=== PATIENT | male | born 1940 | race Caucasian/White ===

== ENCOUNTER 2021-09-03 10:10 | Inpatient (IN) ==
[2021-09-03 11:03] LABS: Basophils % 0.5 % (0.0-0.8); Eosinophils # 0.1 10*3/uL (0.0-0.87); Eosinophils % 1.3 % (0.00-10.9); Hematocrit 28.9 VOL% (42.0-52.0); Hemoglobin 8.9 GM/DL (14.0-18.0); Immature Granulocytes % 0.3 %; Immature Granulocytes Absolute 0.02 #; Lymphocytes # 1.1 10*3/uL (1.4-4.0); Mean Corpuscular HGB Conc 30.8 GM/DL (32-36); Mean Corpuscular Volume 87.3 FL (87-102); Mean Platelet Volume 11.6 FL (9.6-12.0); Monocytes # 0.4 10*3/uL (0.11-0.8); Monocytes % 5.9 % (1.7-12.7); Platelet Count 160 T/CUMM (130-400); Red Blood Count 3.31 MC/CUMM (3.8-5.5); Red Cell Distribution Width 14.3 % (9.3-17.3)
[2021-09-03 11:23] LABS: Alanine Aminotransferase 27 U/L (16-61); Alkaline Phosphatase 71 U/L (45-117); Aspartate Amino Transferase 18 U/L (0-37); Bilirubin,Total < 0.39 MG/DL (0.20-1.00); Blood Urea Nitrogen 33 MG/DL (7-18); Calcium 8.2 MG/DL (8.5-10.1); Carbon Dioxide 24 MMOL/L (21-32); Chloride 106 MMOL/L (98-107); Glucose 137 MG/DL (74-106); Osmolality,Calculated 276.2 MOS/KG (273-304); Sodium 134 MMOL/L (136-145); Total Protein 6.5 G/DL (6.4-8.2)
[2021-09-03 11:26] LABS: Potassium 6.5 MMOL/L (3.5-5.1)
[2021-09-03] MEDS ORDERED: INSULIN REGULAR 100 UNIT/ML IV ONE (11:29)
[2021-09-03] MEDS ORDERED: DEXTROSE 50% 25 GM/50 ML VIAL IV STA (11:29)
[2021-09-03] MEDS ORDERED: CALCIUM GLUCONATE RIDER 2,000 MG/100 ML PREMIX IV ONE (11:29)
[2021-09-03] MEDS ORDERED: SODIUM POLYSTYRENE SULFATE 15 GM/60 ML BOTTLE PO STA (11:30)
[2021-09-03] MEDS ORDERED: FUROSEMIDE 40 MG/4 ML VIAL IV STA (11:32)
[2021-09-03] MEDS ORDERED: DEXTROSE 50% 25 GM/50 ML SYRINGE IV ONE (12:06)
[2021-09-03] MEDS ORDERED: PIPERACILLIN/TAZOBACTAM 3,375 MG in SODIUM CHLORIDE 0.9% 100 ML IV STA ×2 (13:51→13:54)
[2021-09-03] MEDS: SODIUM CHLORIDE 0.9% 1,000 ML IV SCH (15:00)
[2021-09-03] MEDS ORDERED: AZITHROMYCIN INJ 500 MG in SODIUM CHLORIDE 0.9% 250 ML IV SCH (15:00)
[2021-09-03] MEDS ORDERED: cefTRIAXone 1,000 MG in SODIUM CHLORIDE 0.9% 100 ML IV SCH (15:00)
[2021-09-03] MEDS ORDERED: ALBUTEROL/IPRATROPIUM 3 ML NEB RESP TX PRN (15:32)
[2021-09-03] MEDS ORDERED: SODIUM POLYSTYRENE SULFATE 15 GM/60 ML BOTTLE PO ONE (16:00)
[2021-09-03] MEDS: PIPERACILLIN/TAZOBACTAM 3,375 MG in SODIUM CHLORIDE 0.9% 100 ML IV SCH (16:30)
[2021-09-03] MEDS: ACETAMINOPHEN 500 MG TABLET PO PRN (19:29)
[2021-09-03] MEDS: ROSUVASTATIN 20 MG TABLET PO SCH (20:55)
[2021-09-03] MEDS: ASPIRIN EC 81 MG TABLET PO SCH (20:55)
[2021-09-03] MEDS: APIXABAN 5 MG TABLET PO SCH (20:55)
[2021-09-03] MEDS: METOPROLOL TARTRATE 100 MG TABLET PO SCH (20:56)
[2021-09-03] MEDS: tiZANidine 4 MG TABLET PO SCH (20:56)
[2021-09-03] MEDS: GABAPENTIN 300 MG CAPSULE PO SCH (20:56)
[2021-09-04] MEDS: PIPERACILLIN/TAZOBACTAM 3,375 MG in SODIUM CHLORIDE 0.9% 100 ML IV SCH ×4 (00:27→23:30)
[2021-09-04 05:14] LABS: Eosinophils # 0.1 10*3/uL (0.0-0.87); Eosinophils % 2.5 % (0.00-10.9); Hematocrit 31.1 VOL% (42.0-52.0); Hemoglobin 9.5 GM/DL (14.0-18.0); Immature Granulocytes % 0.5 %; Immature Granulocytes Absolute 0.02 #; Lymphocytes # 0.8 10*3/uL (1.4-4.0); Lymphocytes % 21.3 % (21.2-54.2); Mean Corpuscular HGB Conc 30.5 GM/DL (32-36); Mean Corpuscular Volume 85.9 FL (87-102); Mean Platelet Volume 10.8 FL (9.6-12.0); Monocytes # 0.3 10*3/uL (0.11-0.8); Monocytes % 6.6 % (1.7-12.7); Neutrophils % 68.1 % (38.7-73.9); Platelet Count 143 T/CUMM (130-400); Red Blood Count 3.62 MC/CUMM (3.8-5.5); Red Cell Distribution Width 14.2 % (9.3-17.3)
[2021-09-04 05:38] LABS: Calcium 8.9 MG/DL (8.5-10.1); Osmolality,Calculated 278.8 MOS/KG (273-304); Potassium 4.9 MMOL/L (3.5-5.1)
[2021-09-04] MEDS: LEVOTHYROXINE 75 MCG TABLET PO SCH (06:20)
[2021-09-04] MEDS: SODIUM CHLORIDE 0.9% 1,000 ML IV SCH ×3 (07:26→23:29)
[2021-09-04] MEDS: APIXABAN 5 MG TABLET PO SCH (09:09)
[2021-09-04] MEDS: METOPROLOL TARTRATE 100 MG TABLET PO SCH ×2 (09:09→20:36)
[2021-09-04] MEDS: amLODIPine 10 MG TABLET PO SCH (09:09)
[2021-09-04] MEDS: LOSARTAN 50 MG TABLET PO SCH (09:10)
[2021-09-04] MEDS: tiZANidine 4 MG TABLET PO SCH ×2 (09:12→20:36)
[2021-09-04] MEDS: GABAPENTIN 300 MG CAPSULE PO SCH ×2 (09:22→20:36)
[2021-09-04 09:26] LABS: Folate 10.44 NG/ML (5.38-24.0)
[2021-09-04] MEDS: ROSUVASTATIN 20 MG TABLET PO SCH (20:36)
[2021-09-04] MEDS: ASPIRIN EC 81 MG TABLET PO SCH (20:36)
[2021-09-05 06:18] LABS: Basophils % 0.7 % (0.0-0.8); Eosinophils # 0.1 10*3/uL (0.0-0.87); Eosinophils % 2.5 % (0.00-10.9); Hematocrit 33.4 VOL% (42.0-52.0); Hemoglobin 10.3 GM/DL (14.0-18.0); Immature Granulocytes % 0.4 %; Immature Granulocytes Absolute 0.02 #; Lymphocytes % 21.7 % (21.2-54.2); Mean Corpuscular HGB Conc 30.8 GM/DL (32-36); Mean Platelet Volume 10.9 FL (9.6-12.0); Monocytes # 0.3 10*3/uL (0.11-0.8); Monocytes % 6.7 % (1.7-12.7); Platelet Count 160 T/CUMM (130-400); Red Blood Count 3.93 MC/CUMM (3.8-5.5); Red Cell Distribution Width 14.2 % (9.3-17.3); White Blood Count 4.5 T/CUMM (4-12)
[2021-09-05] MEDS: LEVOTHYROXINE 75 MCG TABLET PO SCH (06:24)
[2021-09-05 06:30] LABS: Calcium 8.4 MG/DL (8.5-10.1); Osmolality,Calculated 279.5 MOS/KG (273-304); Potassium 4.3 MMOL/L (3.5-5.1)
[2021-09-05] MEDS ORDERED: CHOLECALCIFEROL 1,000 UNIT TABLET PO SCH (09:00)
[2021-09-05] MEDS: amLODIPine 10 MG TABLET PO SCH (09:02)
[2021-09-05] MEDS: LOSARTAN 50 MG TABLET PO SCH (09:02)
[2021-09-05] MEDS: FERROUS SULFATE 325 MG TABLET PO SCH (09:02)
[2021-09-05] MEDS: tiZANidine 4 MG TABLET PO SCH ×2 (09:03→20:12)
[2021-09-05] MEDS: GABAPENTIN 300 MG CAPSULE PO SCH ×2 (09:03→20:12)
[2021-09-05] MEDS: ACETAMINOPHEN 500 MG TABLET PO PRN ×2 (09:03→20:13)
[2021-09-05] MEDS: METOPROLOL TARTRATE 100 MG TABLET PO SCH ×2 (09:03→20:12)
[2021-09-05] MEDS: PIPERACILLIN/TAZOBACTAM 3,375 MG in SODIUM CHLORIDE 0.9% 100 ML IV SCH ×2 (09:04→17:19)
[2021-09-05] MEDS: SODIUM CHLORIDE 0.9% 1,000 ML IV SCH (18:35)
[2021-09-05] MEDS: DOCUSATE SODIUM 100 MG CAPSULE PO SCH (20:12)
[2021-09-05] MEDS: ROSUVASTATIN 20 MG TABLET PO SCH (20:12)
[2021-09-05] MEDS: ASPIRIN EC 81 MG TABLET PO SCH (20:14)
[2021-09-06] MEDS: SODIUM CHLORIDE 0.9% 1,000 ML IV SCH (00:45)
[2021-09-06] MEDS: PIPERACILLIN/TAZOBACTAM 3,375 MG in SODIUM CHLORIDE 0.9% 100 ML IV SCH ×2 (01:02→08:42)
[2021-09-06 05:12] LABS: Basophils % 0.2 % (0.0-0.8); Eosinophils # 0.1 10*3/uL (0.0-0.87); Eosinophils % 1.4 % (0.00-10.9); Hematocrit 30.1 VOL% (42.0-52.0); Hemoglobin 9.4 GM/DL (14.0-18.0); Immature Granulocytes % 0.2 %; Immature Granulocytes Absolute 0.01 #; Lymphocytes # 0.9 10*3/uL (1.4-4.0); Lymphocytes % 18.3 % (21.2-54.2); Mean Corpuscular HGB Conc 31.2 GM/DL (32-36); Mean Corpuscular Volume 85.3 FL (87-102); Mean Platelet Volume 10.9 FL (9.6-12.0); Monocytes # 0.3 10*3/uL (0.11-0.8); Neutrophils % 73.9 % (38.7-73.9); Platelet Count 151 T/CUMM (130-400); Red Blood Count 3.53 MC/CUMM (3.8-5.5); Red Cell Distribution Width 14.3 % (9.3-17.3)
[2021-09-06 05:38] LABS: Calcium 8.4 MG/DL (8.5-10.1); Osmolality,Calculated 279.5 MOS/KG (273-304); Potassium 4.2 MMOL/L (3.5-5.1)
[2021-09-06] MEDS: LEVOTHYROXINE 75 MCG TABLET PO SCH (06:34)
[2021-09-06 07:25] VITALS: BP 179/70
[2021-09-06] MEDS: DOCUSATE SODIUM 100 MG CAPSULE PO SCH (08:42)
[2021-09-06] MEDS: FERROUS SULFATE 325 MG TABLET PO SCH (08:42)
[2021-09-06] MEDS: GABAPENTIN 300 MG CAPSULE PO SCH (08:42)
[2021-09-06] MEDS: tiZANidine 4 MG TABLET PO SCH (08:42)
[2021-09-06] MEDS: amLODIPine 10 MG TABLET PO SCH (08:43)
[2021-09-06] MEDS: METOPROLOL TARTRATE 100 MG TABLET PO SCH (08:43)
[2021-09-06] MEDS: LOSARTAN 50 MG TABLET PO SCH (08:43)
[2021-09-06] MEDS ORDERED: hydroCHLOROthiazide 25 MG TABLET PO SCH (09:00)
[2021-09-06] MEDS ORDERED: CHOLECALCIFEROL 1,000 UNIT TABLET PO SCH (09:00)
== END 2021-09-06 11:25 | disposition home health service (06) | DRG 194 ==
LOC: SUATTDRO → EDBD → EDUNIT# → N.ED 10:10 → N.3E 18:36
PROVIDERS: ADMIT Internal Medicine; ATTEND Internal Medicine

== ENCOUNTER 2022-03-09 12:54 | Inpatient (IN) ==
[2022-03-09 13:19] LABS: Basophils % 0.5 % (0.0-0.8); Eosinophils # 0.2 10*3/uL (0.0-0.87); Eosinophils % 2.8 % (0.00-10.9); Hematocrit 35.9 VOL% (42.0-52.0); Hemoglobin 11.5 GM/DL (14.0-18.0); Immature Granulocytes % 0.9 %; Immature Granulocytes Absolute 0.05 #; Lymphocytes # 1.1 10*3/uL (1.4-4.0); Lymphocytes % 19.2 % (21.2-54.2); Mean Corpuscular Volume 90.4 FL (87-102); Mean Platelet Volume 10.4 FL (9.6-12.0); Monocytes # 0.6 10*3/uL (0.11-0.8); Monocytes % 9.7 % (1.7-12.7); Neutrophils % 66.9 % (38.7-73.9); Platelet Count 165 T/CUMM (130-400); Red Blood Count 3.97 MC/CUMM (3.8-5.5); Red Cell Distribution Width 14.6 % (9.3-17.3); White Blood Count 5.7 T/CUMM (4-12)
[2022-03-09 13:29] LABS: INR 0.9; PT Patient Result 10.5 SECS (10.1-12.1)
[2022-03-09 13:39] LABS: Albumin 3.4 G/DL (3.4-5.0); Bilirubin,Total 0.4 MG/DL (0.20-1.00); Calcium 8.7 MG/DL (8.5-10.1); Osmolality,Calculated 282.7 MOS/KG (273-304); Potassium 4.2 MMOL/L (3.5-5.1); Total Protein 6.5 G/DL (6.4-8.2)
[2022-03-09] MEDS ORDERED: ONDANSETRON 4 MG/2 ML VIAL IV PRN (15:03)
[2022-03-09] MEDS ORDERED: GLUCAGON 1 MG VIAL IM PRN (15:03)
[2022-03-09] MEDS ORDERED: ACETAMINOPHEN 325 MG TABLET PO PRN (15:03)
[2022-03-09] MEDS ORDERED: DEXTROSE 10% 250 ML BAG IV PRN (15:08)
[2022-03-09] MEDS ORDERED: LACTULOSE 20 GM/30 ML UDCUP PO PRN (15:14)
[2022-03-09] MEDS ORDERED: SODIUM CHLORIDE 0.9% 1,000 ML IV SCH (15:30)
[2022-03-09] MEDS ORDERED: POLYETHYLENE GLYCOL POWDER 17 GM PACK PO PRN (15:37)
[2022-03-09 15:40] LABS: Folate 22.05 NG/ML (5.38-24.0)
[2022-03-09 15:50] LABS: Mucus,Urine Occasional /LPF (Occasional); RBC,Urine 1 /HPF (0-4)
[2022-03-09 15:51] LABS: Bilirubin,Urine Negative (Negative); Blood, Urine Negative (Negative); Glucose,Urine (UA) Negative (Negative); Ketones,Urine Negative (Negative); Nitrite,Urine Negative (Negative); Protein,Urine Negative (Negative); Urine Appearance Clear (Clear); Urine Color Yellow (Yellow); Urine Urobilinogen 0.2 eU/dL (<2.0); Urine pH 6.5 (4.5-8.0)
[2022-03-09] MEDS: INSULIN LISPRO 100 UNIT/ML SUBCUT SCH ×2 (17:47→21:29)
[2022-03-09] MEDS: ASPIRIN EC 81 MG TABLET PO SCH (21:27)
[2022-03-09] MEDS: APIXABAN 2.5 MG TABLET PO SCH (21:28)
[2022-03-09] MEDS: GABAPENTIN 300 MG CAPSULE PO SCH (21:28)
[2022-03-09] MEDS: NEBIVOLOL 10 MG TABLET PO SCH (21:28)
[2022-03-09] MEDS: DOCUSATE SODIUM 100 MG CAPSULE PO SCH (21:28)
[2022-03-09] MEDS: CALCIUM CARBONATE CHEW 500 MG TABLET PO SCH (21:29)
[2022-03-10 05:50] LABS: Basophils # 0.1 10*3/uL (0.0-0.2); Basophils % 0.8 % (0.0-0.8); Eosinophils # 0.2 10*3/uL (0.0-0.87); Eosinophils % 2.9 % (0.00-10.9); Hematocrit 35.7 VOL% (42.0-52.0); Hemoglobin 11.6 GM/DL (14.0-18.0); Immature Granulocytes % 0.2 %; Immature Granulocytes Absolute 0.01 #; Lymphocytes # 1.3 10*3/uL (1.4-4.0); Lymphocytes % 21.4 % (21.2-54.2); Mean Corpuscular HGB Conc 32.5 GM/DL (32-36); Mean Corpuscular Volume 90.4 FL (87-102); Mean Platelet Volume 10.5 FL (9.6-12.0); Monocytes # 0.4 10*3/uL (0.11-0.8); Monocytes % 6.7 % (1.7-12.7); Platelet Count 181 T/CUMM (130-400); Red Blood Count 3.95 MC/CUMM (3.8-5.5); Red Cell Distribution Width 14.6 % (9.3-17.3); White Blood Count 6.1 T/CUMM (4-12)
[2022-03-10 06:05] LABS: Albumin 3.3 G/DL (3.4-5.0); Bilirubin,Total 0.4 MG/DL (0.20-1.00); Calcium 8.8 MG/DL (8.5-10.1); Osmolality,Calculated 285.4 MOS/KG (273-304); Potassium 4.3 MMOL/L (3.5-5.1); Risk Ratio 3.91; Thyroid Stimulating Hormone 2.68 uIU/ml (0.358-3.74); Total Protein 6.2 G/DL (6.4-8.2)
[2022-03-10] MEDS: LEVOTHYROXINE 75 MCG TABLET PO SCH (07:09)
[2022-03-10] MEDS ORDERED: ALUM/MAG/SIMETH/LIDO VISC 1:1 30 ML BOTTLE PO ONE (07:21)
[2022-03-10] MEDS: PANTOPRAZOLE 40 MG TABLET PO SCH ×2 (07:57→09:38)
[2022-03-10] MEDS: DOCUSATE SODIUM 100 MG CAPSULE PO SCH ×3 (07:57→21:22)
[2022-03-10] MEDS: GABAPENTIN 300 MG CAPSULE PO SCH ×4 (07:58→21:22)
[2022-03-10] MEDS: CHOLECALCIFEROL 1,000 UNIT TABLET PO SCH (07:58)
[2022-03-10] MEDS: amLODIPine 5 MG TABLET PO SCH ×2 (07:58→09:38)
[2022-03-10] MEDS: FERROUS SULFATE 325 MG TABLET PO SCH ×2 (07:58→09:38)
[2022-03-10] MEDS: CALCIUM CARBONATE CHEW 500 MG TABLET PO SCH ×3 (07:58→21:24)
[2022-03-10] MEDS: LOSARTAN 50 MG TABLET PO SCH ×2 (07:58→09:37)
[2022-03-10] MEDS: APIXABAN 2.5 MG TABLET PO SCH ×2 (07:59→21:23)
[2022-03-10] MEDS: INSULIN LISPRO 100 UNIT/ML SUBCUT SCH ×4 (09:05→21:23)
[2022-03-10] MEDS: ASPIRIN EC 81 MG TABLET PO SCH (21:22)
[2022-03-10] MEDS: NEBIVOLOL 10 MG TABLET PO SCH (21:23)
[2022-03-11] MEDS: LEVOTHYROXINE 75 MCG TABLET PO SCH (05:35)
[2022-03-11] MEDS: INSULIN LISPRO 100 UNIT/ML SUBCUT SCH ×4 (07:43→21:07)
[2022-03-11] MEDS: APIXABAN 2.5 MG TABLET PO SCH (09:09)
[2022-03-11] MEDS: GABAPENTIN 300 MG CAPSULE PO SCH ×3 (09:09→21:07)
[2022-03-11] MEDS: amLODIPine 5 MG TABLET PO SCH (09:09)
[2022-03-11] MEDS: PANTOPRAZOLE 40 MG TABLET PO SCH ×2 (09:10→21:07)
[2022-03-11] MEDS: CHOLECALCIFEROL 1,000 UNIT TABLET PO SCH (09:10)
[2022-03-11] MEDS: CALCIUM CARBONATE CHEW 500 MG TABLET PO SCH ×2 (09:10→21:06)
[2022-03-11] MEDS: LOSARTAN 50 MG TABLET PO SCH (09:10)
[2022-03-11] MEDS: FERROUS SULFATE 325 MG TABLET PO SCH (09:10)
[2022-03-11] MEDS: DOCUSATE SODIUM 100 MG CAPSULE PO SCH ×2 (09:10→21:06)
[2022-03-11] MEDS: NEBIVOLOL 10 MG TABLET PO SCH (21:06)
[2022-03-11] MEDS: ASPIRIN EC 81 MG TABLET PO SCH (21:07)
[2022-03-11] MEDS: HEPARIN 5,000 UNIT/1 ML VIAL SUBCUT SCH (21:07)
[2022-03-12] MEDS: LEVOTHYROXINE 75 MCG TABLET PO SCH (06:03)
[2022-03-12 06:16] LABS: Basophils % 0.7 % (0.0-0.8); Eosinophils # 0.2 10*3/uL (0.0-0.87); Eosinophils % 3.9 % (0.00-10.9); Hematocrit 33.4 VOL% (42.0-52.0); Hemoglobin 10.7 GM/DL (14.0-18.0); Immature Granulocytes % 0.4 %; Immature Granulocytes Absolute 0.02 #; Lymphocytes # 1.5 10*3/uL (1.4-4.0); Lymphocytes % 27.1 % (21.2-54.2); Mean Platelet Volume 10.7 FL (9.6-12.0); Monocytes # 0.4 10*3/uL (0.11-0.8); Monocytes % 8.1 % (1.7-12.7); Neutrophils % 59.8 % (38.7-73.9); Platelet Count 184 T/CUMM (130-400); Red Blood Count 3.71 MC/CUMM (3.8-5.5); Red Cell Distribution Width 14.5 % (9.3-17.3); White Blood Count 5.4 T/CUMM (4-12)
[2022-03-12 06:51] LABS: Calcium 8.5 MG/DL (8.5-10.1); Osmolality,Calculated 283.5 MOS/KG (273-304); Potassium 4.1 MMOL/L (3.5-5.1)
[2022-03-12] MEDS: INSULIN LISPRO 100 UNIT/ML SUBCUT SCH ×4 (07:05→20:22)
[2022-03-12] MEDS: GABAPENTIN 300 MG CAPSULE PO SCH ×3 (08:36→20:17)
[2022-03-12] MEDS: CALCIUM CARBONATE CHEW 500 MG TABLET PO SCH ×2 (08:36→20:17)
[2022-03-12] MEDS: LOSARTAN 50 MG TABLET PO SCH (08:37)
[2022-03-12] MEDS: PANTOPRAZOLE 40 MG TABLET PO SCH ×2 (08:37→20:17)
[2022-03-12] MEDS: FERROUS SULFATE 325 MG TABLET PO SCH (08:37)
[2022-03-12] MEDS: CHOLECALCIFEROL 1,000 UNIT TABLET PO SCH (08:37)
[2022-03-12] MEDS: DOCUSATE SODIUM 100 MG CAPSULE PO SCH ×2 (08:37→20:17)
[2022-03-12] MEDS: amLODIPine 5 MG TABLET PO SCH (08:37)
[2022-03-12] MEDS: HEPARIN 5,000 UNIT/1 ML VIAL SUBCUT SCH ×2 (08:41→20:17)
[2022-03-12] MEDS: ASPIRIN EC 81 MG TABLET PO SCH (20:17)
[2022-03-12] MEDS: NEBIVOLOL 10 MG TABLET PO SCH (20:17)
[2022-03-13] MEDS: LEVOTHYROXINE 75 MCG TABLET PO SCH (05:39)
[2022-03-13 06:01] LABS: Basophils % 0.7 % (0.0-0.8); Eosinophils # 0.2 10*3/uL (0.0-0.87); Eosinophils % 3.6 % (0.00-10.9); Hematocrit 33.3 VOL% (42.0-52.0); Hemoglobin 11.1 GM/DL (14.0-18.0); Immature Granulocytes % 0.4 %; Immature Granulocytes Absolute 0.02 #; Lymphocytes # 1.3 10*3/uL (1.4-4.0); Mean Corpuscular HGB Conc 33.3 GM/DL (32-36); Mean Corpuscular Volume 89.8 FL (87-102); Mean Platelet Volume 10.7 FL (9.6-12.0); Monocytes # 0.4 10*3/uL (0.11-0.8); Monocytes % 7.8 % (1.7-12.7); Neutrophils % 63.5 % (38.7-73.9); Platelet Count 189 T/CUMM (130-400); Red Blood Count 3.71 MC/CUMM (3.8-5.5); Red Cell Distribution Width 14.5 % (9.3-17.3); White Blood Count 5.5 T/CUMM (4-12)
[2022-03-13 06:11] LABS: Calcium 8.5 MG/DL (8.5-10.1); Osmolality,Calculated 287.4 MOS/KG (273-304); Potassium 4.3 MMOL/L (3.5-5.1)
[2022-03-13] MEDS: INSULIN LISPRO 100 UNIT/ML SUBCUT SCH ×4 (07:56→20:59)
[2022-03-13] MEDS: DOCUSATE SODIUM 100 MG CAPSULE PO SCH ×2 (09:38→20:58)
[2022-03-13] MEDS: PANTOPRAZOLE 40 MG TABLET PO SCH ×2 (09:39→21:00)
[2022-03-13] MEDS: CALCIUM CARBONATE CHEW 500 MG TABLET PO SCH ×2 (09:39→21:00)
[2022-03-13] MEDS: HEPARIN 5,000 UNIT/1 ML VIAL SUBCUT SCH ×2 (09:39→20:58)
[2022-03-13] MEDS: GABAPENTIN 300 MG CAPSULE PO SCH ×3 (09:39→20:59)
[2022-03-13] MEDS ORDERED: propofoL 200 MG/20 ML VIAL IV ONE (14:58)
[2022-03-13] MEDS ORDERED: ETOMIDATE 20 MG/10 ML VIAL IV ONE (14:58)
[2022-03-13] MEDS ORDERED: LIDOCAINE 2% 5 ML VIAL ONE (14:58)
[2022-03-13] MEDS ORDERED: LACTATED RINGERS 1,000 ML IV SCH (15:00)
[2022-03-13] MEDS: LOSARTAN 50 MG TABLET PO SCH (17:03)
[2022-03-13] MEDS: CHOLECALCIFEROL 1,000 UNIT TABLET PO SCH (17:04)
[2022-03-13] MEDS: amLODIPine 5 MG TABLET PO SCH (17:04)
[2022-03-13] MEDS: FERROUS SULFATE 325 MG TABLET PO SCH (17:04)
[2022-03-13] MEDS: ASPIRIN EC 81 MG TABLET PO SCH (20:57)
[2022-03-13] MEDS: NEBIVOLOL 10 MG TABLET PO SCH (20:58)
[2022-03-13] MEDS ORDERED: ROSUVASTATIN 20 MG TABLET PO SCH (21:00)
[2022-03-14 05:20] LABS: Basophils % 0.6 % (0.0-0.8); Eosinophils # 0.2 10*3/uL (0.0-0.87); Eosinophils % 3.7 % (0.00-10.9); Hemoglobin 10.8 GM/DL (14.0-18.0); Immature Granulocytes % 0.5 %; Immature Granulocytes Absolute 0.03 #; Lymphocytes # 1.2 10*3/uL (1.4-4.0); Lymphocytes % 19.7 % (21.2-54.2); Mean Corpuscular HGB Conc 32.7 GM/DL (32-36); Mean Corpuscular Volume 88.9 FL (87-102); Mean Platelet Volume 10.1 FL (9.6-12.0); Monocytes # 0.4 10*3/uL (0.11-0.8); Monocytes % 6.2 % (1.7-12.7); Neutrophils % 69.3 % (38.7-73.9); Platelet Count 193 T/CUMM (130-400); Red Blood Count 3.71 MC/CUMM (3.8-5.5); Red Cell Distribution Width 14.3 % (9.3-17.3); White Blood Count 6.3 T/CUMM (4-12)
[2022-03-14] MEDS: LEVOTHYROXINE 75 MCG TABLET PO SCH (06:01)
[2022-03-14] MEDS: LOSARTAN 50 MG TABLET PO SCH (08:51)
[2022-03-14] MEDS: CALCIUM CARBONATE CHEW 500 MG TABLET PO SCH (08:51)
[2022-03-14] MEDS: CHOLECALCIFEROL 1,000 UNIT TABLET PO SCH (08:51)
[2022-03-14] MEDS: amLODIPine 5 MG TABLET PO SCH (08:52)
[2022-03-14] MEDS: DOCUSATE SODIUM 100 MG CAPSULE PO SCH (08:52)
[2022-03-14] MEDS: GABAPENTIN 300 MG CAPSULE PO SCH ×2 (08:52→12:24)
[2022-03-14] MEDS: HEPARIN 5,000 UNIT/1 ML VIAL SUBCUT SCH (08:52)
[2022-03-14] MEDS: FERROUS SULFATE 325 MG TABLET PO SCH (08:52)
[2022-03-14] MEDS: INSULIN LISPRO 100 UNIT/ML SUBCUT SCH ×2 (08:58→12:23)
[2022-03-14] MEDS: PANTOPRAZOLE 40 MG TABLET PO SCH (08:59)
[2022-03-14] MEDS ORDERED: GABAPENTIN 300 MG CAPSULE PO ONE (09:05)
[2022-03-14 12:00] VITALS: BP 135/72
== END 2022-03-14 14:55 | disposition home health service (06) | DRG 312 ==
LOC: N.EDINP 12:54 → N.ED 12:54 → SUATTDRO 15:02 → N.2W 16:40 → N.5E 03-10 06:00 → SUATTDRO 03-11 08:24
PROVIDERS: ADMIT Internal Medicine; ATTEND Internal Medicine

== ENCOUNTER 2022-06-07 12:21 | Inpatient (IN) ==
[2022-06-07 12:53] LABS: Basophils % 0.5 % (0.0-0.8); Eosinophils # 0.1 10*3/uL (0.0-0.87); Eosinophils % 1.1 % (0.00-10.9); Hemoglobin 7.4 GM/DL (14.0-18.0); Immature Granulocytes % 0.6 %; Immature Granulocytes Absolute 0.04 #; Lymphocytes # 1.1 10*3/uL (1.4-4.0); Lymphocytes % 17.2 % (21.2-54.2); Mean Corpuscular HGB Conc 32.2 GM/DL (32-36); Mean Corpuscular Volume 93.9 FL (87-102); Mean Platelet Volume 10.1 FL (9.6-12.0); Monocytes # 0.3 10*3/uL (0.11-0.8); Monocytes % 4.6 % (1.7-12.7); Platelet Count 195 T/CUMM (130-400); Red Blood Count 2.45 MC/CUMM (3.8-5.5); Red Cell Distribution Width 14.2 % (9.3-17.3); White Blood Count 6.33 T/CUMM (4-12)
[2022-06-07 13:06] LABS: PT Patient Result 10.6 SECS (10.1-12.1); Partial Thromboplastin Time 31.5 SECS (23.7-32.9)
[2022-06-07 13:17] LABS: Alanine Aminotransferase 23 U/L (16-61); Albumin 2.8 G/DL (3.4-5.0); Alkaline Phosphatase 75 U/L (45-117); Aspartate Amino Transferase 15 U/L (0-37); Bilirubin,Total < 0.39 MG/DL (0.20-1.00); Blood Urea Nitrogen 34 MG/DL (7-18); Calcium 8.3 MG/DL (8.5-10.1); Carbon Dioxide 27 MMOL/L (21-32); Chloride 104 MMOL/L (98-107); Glucose 111 MG/DL (74-106); Osmolality,Calculated 281.8 MOS/KG (273-304); Potassium 4.1 MMOL/L (3.5-5.1); Sodium 137 MMOL/L (136-145); Total Protein 5.8 G/DL (6.4-8.2)
[2022-06-07] MEDS ORDERED: DEXTROSE 10% 250 ML BAG IV PRN (13:47)
[2022-06-07] MEDS ORDERED: ACETAMINOPHEN 325 MG TABLET PO PRN (13:47)
[2022-06-07] MEDS ORDERED: GLUCAGON 1 MG VIAL IM PRN (13:47)
[2022-06-07] MEDS ORDERED: FUROSEMIDE 40 MG/4 ML VIAL IV ONE (13:50)
[2022-06-07] MEDS ORDERED: SODIUM CHLORIDE 0.9% 1,000 ML IV PRN ×2 (13:50→23:46)
[2022-06-07] MEDS: INSULIN LISPRO 100 UNIT/ML SUBCUT SCH ×2 (15:44→21:13)
[2022-06-07] MEDS: LEVOFLOXACIN INJ 750 MG/150 ML PREMIX IV SCH (15:50)
[2022-06-07] MEDS ORDERED: POLYETHYLENE GLYCOL POWDER 17 GM PACK PO PRN (15:57)
[2022-06-07] MEDS ORDERED: CALCIUM CARBONATE CHEW 500 MG TABLET PO PRN (15:57)
[2022-06-07 17:50] LABS: Hematocrit 23.2 VOL% (42.0-52.0); Hemoglobin 7.1 GM/DL (14.0-18.0)
[2022-06-07 18:10] LABS: % Iron Saturation 20.9 % (18-50); Ferritin 49.2 ng/mL (26-388)
[2022-06-07 18:13] LABS: Folate 18.12 NG/ML (5.38-24.0); Vitamin B12 > 2000 PG/ML (211-911)
[2022-06-07] MEDS: GABAPENTIN 300 MG CAPSULE PO SCH (20:57)
[2022-06-07] MEDS: PANTOPRAZOLE 40 MG VIAL IV SCH (20:59)
[2022-06-07] MEDS ORDERED: NEBIVOLOL 10 MG TABLET PO SCH (21:00)
[2022-06-07] MEDS ORDERED: ROSUVASTATIN 20 MG TABLET PO SCH (21:00)
[2022-06-07 23:26] LABS: Hematocrit 22.9 VOL% (42.0-52.0); Hemoglobin 7.4 GM/DL (14.0-18.0)
[2022-06-08] MEDS: LEVOTHYROXINE 75 MCG TABLET PO SCH ×2 (05:48→06:10)
[2022-06-08 08:09] LABS: Calcium 8.3 MG/DL (8.5-10.1); Osmolality,Calculated 283.7 MOS/KG (273-304); Potassium 3.8 MMOL/L (3.5-5.1)
[2022-06-08] MEDS: LACTATED RINGERS 1,000 ML IV SCH (08:15)
[2022-06-08] MEDS: INSULIN LISPRO 100 UNIT/ML SUBCUT SCH ×4 (08:17→20:28)
[2022-06-08] MEDS ORDERED: LIDOCAINE 2% 5 ML VIAL ONE (08:20)
[2022-06-08] MEDS ORDERED: propofoL 200 MG/20 ML VIAL IV ONE (08:20)
[2022-06-08] MEDS ORDERED: PHENYLEPHRINE 1 MG/10 ML SYRINGE IV ONE (08:35)
[2022-06-08] MEDS: PANTOPRAZOLE 40 MG VIAL IV SCH ×2 (10:31→20:25)
[2022-06-08] MEDS: FUROSEMIDE 40 MG/4 ML VIAL IV SCH (10:31)
[2022-06-08] MEDS: GABAPENTIN 300 MG CAPSULE PO SCH ×3 (10:31→20:25)
[2022-06-08] MEDS: CHOLECALCIFEROL 1,000 UNIT TABLET PO SCH (10:32)
[2022-06-08 10:55] LABS: Basophils % 0.5 % (0.0-0.8); Eosinophils # 0.1 10*3/uL (0.0-0.87); Eosinophils % 1.6 % (0.00-10.9); Hematocrit 33.6 VOL% (42.0-52.0); Hemoglobin 10.9 GM/DL (14.0-18.0); Immature Granulocytes % 0.5 %; Immature Granulocytes Absolute 0.03 #; Lymphocytes # 0.9 10*3/uL (1.4-4.0); Lymphocytes % 15.2 % (21.2-54.2); Mean Corpuscular HGB Conc 32.4 GM/DL (32-36); Mean Corpuscular Volume 95.7 FL (87-102); Mean Platelet Volume 10.1 FL (9.6-12.0); Monocytes # 0.4 10*3/uL (0.11-0.8); Monocytes % 6.1 % (1.7-12.7); Neutrophils % 76.1 % (38.7-73.9); Platelet Count 152 T/CUMM (130-400); Red Blood Count 3.51 MC/CUMM (3.8-5.5); Red Cell Distribution Width 14.6 % (9.3-17.3); White Blood Count 5.74 T/CUMM (4-12)
[2022-06-08] MEDS: ONDANSETRON 4 MG/2 ML VIAL IV PRN ×2 (13:27→17:58)
[2022-06-08] MEDS: LEVOFLOXACIN INJ 750 MG/150 ML PREMIX IV SCH (15:17)
[2022-06-08 17:02] LABS: Hematocrit 29.3 VOL% (42.0-52.0); Hemoglobin 9.5 GM/DL (14.0-18.0)
[2022-06-08 22:38] LABS: Hematocrit 29.3 VOL% (42.0-52.0); Hemoglobin 9.6 GM/DL (14.0-18.0)
[2022-06-09] MEDS: LEVOTHYROXINE 75 MCG TABLET PO SCH (05:45)
[2022-06-09 06:09] LABS: Basophils % 0.5 % (0.0-0.8); Eosinophils # 0.1 10*3/uL (0.0-0.87); Eosinophils % 1.3 % (0.00-10.9); Hematocrit 34.5 VOL% (42.0-52.0); Hemoglobin 12.1 GM/DL (14.0-18.0); Immature Granulocytes % 0.3 %; Immature Granulocytes Absolute 0.02 #; Lymphocytes # 0.9 10*3/uL (1.4-4.0); Lymphocytes % 14.4 % (21.2-54.2); Mean Corpuscular HGB Conc 35.1 GM/DL (32-36); Mean Corpuscular Volume 93.5 FL (87-102); Mean Platelet Volume 10.7 FL (9.6-12.0); Monocytes # 0.4 10*3/uL (0.11-0.8); Monocytes % 5.8 % (1.7-12.7); Neutrophils % 77.7 % (38.7-73.9); Platelet Count 191 T/CUMM (130-400); Red Blood Count 3.69 MC/CUMM (3.8-5.5); Red Cell Distribution Width 14.7 % (9.3-17.3); White Blood Count 6.24 T/CUMM (4-12)
[2022-06-09 06:40] LABS: Albumin 2.8 G/DL (3.4-5.0); Bilirubin,Total 0.6 MG/DL (0.20-1.00); Osmolality,Calculated 277.8 MOS/KG (273-304); Total Protein 6.5 G/DL (6.4-8.2)
[2022-06-09] MEDS: INSULIN LISPRO 100 UNIT/ML SUBCUT SCH ×4 (08:01→20:53)
[2022-06-09] MEDS: FUROSEMIDE 40 MG/4 ML VIAL IV SCH (11:16)
[2022-06-09] MEDS: PANTOPRAZOLE 40 MG VIAL IV SCH ×2 (11:16→20:53)
[2022-06-09] MEDS: GABAPENTIN 300 MG CAPSULE PO SCH ×3 (11:16→20:50)
[2022-06-09] MEDS: CHOLECALCIFEROL 1,000 UNIT TABLET PO SCH (11:17)
[2022-06-09 11:42] LABS: Hematocrit 34.7 VOL% (42.0-52.0); Hemoglobin 11.4 GM/DL (14.0-18.0)
[2022-06-09] MEDS: LEVOFLOXACIN INJ 750 MG/150 ML PREMIX IV SCH (14:22)
[2022-06-09 15:01] LABS: Amylase,Body Fluid 42 U/L; Glucose,Pleural Fluid 130 MG/DL; LDH,Body Fluid 61 U/L; Total Protein,Body Fluid 2.5 G/DL; Triglycerides,Body Fluid 16 MG/DL
[2022-06-09 15:06] LABS: Lymphocytes,Pleural Fluid 81 %; Monocytes,Pleural Fluid 9 %; Neutrophils,Pleural Fluid 10 %
[2022-06-09 15:09] LABS: RBC,Pleural Fluid 60 T/CUMM
[2022-06-10] MEDS: LEVOTHYROXINE 75 MCG TABLET PO SCH (05:40)
[2022-06-10 06:05] LABS: Basophils % 0.3 % (0.0-0.8); Eosinophils # 0.1 10*3/uL (0.0-0.87); Eosinophils % 1.4 % (0.00-10.9); Hematocrit 33.2 VOL% (42.0-52.0); Immature Granulocytes % 0.3 %; Immature Granulocytes Absolute 0.02 #; Lymphocytes # 0.9 10*3/uL (1.4-4.0); Lymphocytes % 13.7 % (21.2-54.2); Mean Corpuscular HGB Conc 33.1 GM/DL (32-36); Mean Corpuscular Volume 92.7 FL (87-102); Mean Platelet Volume 10.5 FL (9.6-12.0); Monocytes # 0.5 10*3/uL (0.11-0.8); Monocytes % 7.3 % (1.7-12.7); Platelet Count 161 T/CUMM (130-400); Red Blood Count 3.58 MC/CUMM (3.8-5.5); Red Cell Distribution Width 14.3 % (9.3-17.3); White Blood Count 6.34 T/CUMM (4-12)
[2022-06-10 06:27] LABS: Albumin 2.5 G/DL (3.4-5.0); Bilirubin,Total 0.6 MG/DL (0.20-1.00); Calcium 8.8 MG/DL (8.5-10.1); Osmolality,Calculated 275.8 MOS/KG (273-304); Potassium 3.8 MMOL/L (3.5-5.1)
[2022-06-10] MEDS: INSULIN LISPRO 100 UNIT/ML SUBCUT SCH ×2 (07:56→12:23)
[2022-06-10] MEDS: FUROSEMIDE 40 MG/4 ML VIAL IV SCH (09:10)
[2022-06-10] MEDS: GABAPENTIN 300 MG CAPSULE PO SCH (09:10)
[2022-06-10] MEDS: CHOLECALCIFEROL 1,000 UNIT TABLET PO SCH (09:10)
[2022-06-10] MEDS: PANTOPRAZOLE 40 MG VIAL IV SCH (09:10)
[2022-06-10] MEDS: LACTATED RINGERS 1,000 ML IV SCH (10:07)
[2022-06-10 11:49] VITALS: BP 128/70
[2022-06-12 22:16] LABS: M. Tuberculosis PCR Result Negative (Negative); M. Tuberculosis PCR Source PLEURAL FLUID
== END 2022-06-10 12:35 | disposition home or self-care (01) | DRG 813 ==
LOC: N.ED 12:21 → N.EDINP 13:47 → N.3E 15:23
PROVIDERS: ADMIT Family Medicine; ATTEND Family Medicine

== ENCOUNTER 2022-06-12 15:14 | Inpatient (IN) ==
[2022-06-12] MEDS ORDERED: SODIUM CHLORIDE 0.9% 1,000 ML IV STA (15:47)
[2022-06-12 16:28] LABS: Basophils % 0.6 % (0.0-0.8); Eosinophils # 0.1 10*3/uL (0.0-0.87); Eosinophils % 1.9 % (0.00-10.9); Immature Granulocytes % 0.5 %; Immature Granulocytes Absolute 0.03 #; Lymphocytes # 1.2 10*3/uL (1.4-4.0); Lymphocytes % 18.8 % (21.2-54.2); Mean Corpuscular HGB Conc 32.4 GM/DL (32-36); Mean Corpuscular Volume 93.2 FL (87-102); Monocytes # 0.6 10*3/uL (0.11-0.8); Monocytes % 9.3 % (1.7-12.7); Neutrophils % 68.9 % (38.7-73.9); Platelet Count 196 T/CUMM (130-400); Red Blood Count 3.65 MC/CUMM (3.8-5.5); Red Cell Distribution Width 14.1 % (9.3-17.3); White Blood Count 6.27 T/CUMM (4-12)
[2022-06-12 16:38] LABS: Bilirubin,Urine Negative (Negative); Blood, Urine Negative (Negative); Glucose,Urine (UA) Negative (Negative); Ketones,Urine Negative (Negative); Nitrite,Urine Negative (Negative); Protein,Urine Negative (Negative); Urine Appearance Clear (Clear); Urine Color Yellow (Yellow); Urine Urobilinogen 0.2 eU/dL (<2.0); Urine pH 5.5 (4.5-8.0)
[2022-06-12 16:39] LABS: PT Patient Result 10.6 SECS (10.1-12.1)
[2022-06-12 16:43] LABS: Hyaline Casts,Urine 7 /LPF (0-3); Mucus,Urine Occasional /LPF (Occasional); RBC,Urine 1 /HPF (0-4)
[2022-06-12 16:51] LABS: Albumin 2.4 G/DL (3.4-5.0); Bilirubin,Total 0.5 MG/DL (0.20-1.00); Calcium 8.5 MG/DL (8.5-10.1); Potassium 4.3 MMOL/L (3.5-5.1); Total Protein 6.3 G/DL (6.4-8.2)
[2022-06-12] MEDS ORDERED: GLUCAGON 1 MG VIAL IM PRN (17:22)
[2022-06-12] MEDS ORDERED: ALBUTEROL 2.5 MG/3 ML NEB RESP TX PRN (17:22)
[2022-06-12] MEDS ORDERED: ACETAMINOPHEN 325 MG TABLET PO PRN (17:22)
[2022-06-12] MEDS ORDERED: ONDANSETRON 4 MG/2 ML VIAL IV PRN (17:22)
[2022-06-12] MEDS ORDERED: CALCIUM CARBONATE CHEW 500 MG TABLET PO PRN (17:24)
[2022-06-12] MEDS ORDERED: ACETAMINOPHEN 500 MG TABLET PO PRN (17:24)
[2022-06-12] MEDS ORDERED: DEXTROSE 10% 250 ML BAG IV PRN (17:49)
[2022-06-12] MEDS ORDERED: POLYETHYLENE GLYCOL POWDER 17 GM PACK PO PRN (17:51)
[2022-06-12] MEDS: SODIUM CHLORIDE 0.9% 1,000 ML IV SCH (18:38)
[2022-06-12 19:27] LABS: Folate 15.99 NG/ML (5.38-24.0); Vitamin B12 > 2000 PG/ML (211-911)
[2022-06-12 20:08] LABS: Barbiturates Screen,Urine Negative (Negative); Benzodiazepines Screen,Urine Negative (Negative); Cannabinoid Screen,Urine Negative (Negative); Opiate Screen,Urine Positive (Negative); Phencyclidine Screen,Urine Negative (Negative)
[2022-06-12] MEDS: INSULIN LISPRO 100 UNIT/ML SUBCUT SCH (21:10)
[2022-06-12] MEDS: ASPIRIN EC 81 MG TABLET PO SCH (21:11)
[2022-06-12 23:12] LABS: Hemoglobin 11.2 GM/DL (14.0-18.0)
[2022-06-13 05:46] LABS: Basophils % 0.7 % (0.0-0.8); Eosinophils # 0.1 10*3/uL (0.0-0.87); Eosinophils % 2.4 % (0.00-10.9); Hematocrit 33.1 VOL% (42.0-52.0); Hemoglobin 10.8 GM/DL (14.0-18.0); Immature Granulocytes % 0.4 %; Immature Granulocytes Absolute 0.02 #; Lymphocytes # 0.9 10*3/uL (1.4-4.0); Lymphocytes % 16.2 % (21.2-54.2); Mean Corpuscular HGB Conc 32.6 GM/DL (32-36); Mean Corpuscular Volume 92.5 FL (87-102); Monocytes # 0.5 10*3/uL (0.11-0.8); Monocytes % 8.7 % (1.7-12.7); Neutrophils % 71.6 % (38.7-73.9); Platelet Count 173 T/CUMM (130-400); Red Blood Count 3.58 MC/CUMM (3.8-5.5); White Blood Count 5.51 T/CUMM (4-12)
[2022-06-13] MEDS: LEVOTHYROXINE 75 MCG TABLET PO SCH (06:05)
[2022-06-13 06:08] LABS: Calcium 8.4 MG/DL (8.5-10.1); Osmolality,Calculated 283.7 MOS/KG (273-304); Potassium 4.1 MMOL/L (3.5-5.1)
[2022-06-13] MEDS: SODIUM CHLORIDE 0.9% 1,000 ML IV SCH ×3 (06:14→12:41)
[2022-06-13] MEDS: INSULIN LISPRO 100 UNIT/ML SUBCUT SCH ×4 (07:37→21:01)
[2022-06-13] MEDS: CHOLECALCIFEROL 1,000 UNIT TABLET PO SCH (08:49)
[2022-06-13] MEDS: PANTOPRAZOLE 40 MG TABLET PO SCH (08:49)
[2022-06-13] MEDS: FERROUS SULFATE 325 MG TABLET PO SCH (21:23)
[2022-06-13] MEDS: NEBIVOLOL 10 MG TABLET PO SCH (21:24)
[2022-06-13] MEDS: ASPIRIN EC 81 MG TABLET PO SCH (21:25)
[2022-06-14] MEDS: SODIUM CHLORIDE 0.9% 1,000 ML IV SCH (03:58)
[2022-06-14 04:59] LABS: Basophils % 0.8 % (0.0-0.8); Eosinophils # 0.1 10*3/uL (0.0-0.87); Eosinophils % 1.7 % (0.00-10.9); Hematocrit 32.7 VOL% (42.0-52.0); Hemoglobin 10.3 GM/DL (14.0-18.0); Immature Granulocytes % 0.2 %; Immature Granulocytes Absolute 0.01 #; Lymphocytes # 0.9 10*3/uL (1.4-4.0); Lymphocytes % 17.9 % (21.2-54.2); Mean Corpuscular HGB Conc 31.5 GM/DL (32-36); Mean Corpuscular Volume 95.6 FL (87-102); Mean Platelet Volume 10.3 FL (9.6-12.0); Monocytes # 0.5 10*3/uL (0.11-0.8); Monocytes % 9.1 % (1.7-12.7); Neutrophils % 70.3 % (38.7-73.9); Platelet Count 177 T/CUMM (130-400); Red Blood Count 3.42 MC/CUMM (3.8-5.5); Red Cell Distribution Width 13.7 % (9.3-17.3); White Blood Count 5.26 T/CUMM (4-12)
[2022-06-14 05:27] LABS: Calcium 8.5 MG/DL (8.5-10.1); Osmolality,Calculated 278.7 MOS/KG (273-304); Potassium 3.9 MMOL/L (3.5-5.1)
[2022-06-14] MEDS: LEVOTHYROXINE 75 MCG TABLET PO SCH (05:53)
[2022-06-14] MEDS: INSULIN LISPRO 100 UNIT/ML SUBCUT SCH ×4 (08:15→21:51)
[2022-06-14] MEDS ORDERED: ROSUVASTATIN 20 MG TABLET PO SCH (09:00)
[2022-06-14] MEDS: CHOLECALCIFEROL 1,000 UNIT TABLET PO SCH (09:44)
[2022-06-14] MEDS: PANTOPRAZOLE 40 MG TABLET PO SCH (09:44)
[2022-06-14] MEDS: FERROUS SULFATE 325 MG TABLET PO SCH ×2 (09:45→21:55)
[2022-06-14] MEDS: GABAPENTIN 300 MG CAPSULE PO SCH (21:54)
[2022-06-14] MEDS: NEBIVOLOL 10 MG TABLET PO SCH (21:54)
[2022-06-14] MEDS: ASPIRIN EC 81 MG TABLET PO SCH (21:55)
[2022-06-15 05:40] LABS: Basophils % 0.9 % (0.0-0.8); Eosinophils # 0.1 10*3/uL (0.0-0.87); Eosinophils % 1.7 % (0.00-10.9); Hematocrit 30.6 VOL% (42.0-52.0); Hemoglobin 10.2 GM/DL (14.0-18.0); Immature Granulocytes % 0.4 %; Immature Granulocytes Absolute 0.02 #; Lymphocytes # 0.9 10*3/uL (1.4-4.0); Mean Corpuscular HGB Conc 33.3 GM/DL (32-36); Mean Corpuscular Volume 92.7 FL (87-102); Mean Platelet Volume 10.5 FL (9.6-12.0); Monocytes # 0.4 10*3/uL (0.11-0.8); Monocytes % 8.7 % (1.7-12.7); Neutrophils % 68.3 % (38.7-73.9); Platelet Count 175 T/CUMM (130-400); Red Cell Distribution Width 13.6 % (9.3-17.3)
[2022-06-15 06:09] LABS: Calcium 8.5 MG/DL (8.5-10.1); Osmolality,Calculated 276.7 MOS/KG (273-304); Potassium 4.1 MMOL/L (3.5-5.1)
[2022-06-15 07:37] VITALS: BP 122/56
[2022-06-15] MEDS: INSULIN LISPRO 100 UNIT/ML SUBCUT SCH (07:43)
[2022-06-15] MEDS: PANTOPRAZOLE 40 MG TABLET PO SCH (09:31)
[2022-06-15] MEDS: CHOLECALCIFEROL 1,000 UNIT TABLET PO SCH (09:31)
[2022-06-15] MEDS: GABAPENTIN 300 MG CAPSULE PO SCH (09:32)
[2022-06-15] MEDS: LEVOTHYROXINE 75 MCG TABLET PO SCH (09:33)
[2022-06-15] MEDS: FERROUS SULFATE 325 MG TABLET PO SCH (09:34)
[2022-06-15] MEDS: SODIUM CHLORIDE 0.9% 1,000 ML IV SCH (10:49)
[2022-06-15] MEDS ORDERED: GABAPENTIN 600 MG TABLET PO SCH (11:30)
[2022-06-15 11:46] LABS: Glucose,Pleural Fluid 133 MG/DL; LDH,Body Fluid 67 U/L; Total Protein,Body Fluid 2.4 G/DL
[2022-06-15 11:50] LABS: Lymphocytes,Pleural Fluid 93 %; Monocytes,Pleural Fluid 5 %; Neutrophils,Pleural Fluid 2 %; RBC,Pleural Fluid < 1 T/CUMM
== END 2022-06-15 12:11 | disposition home health service (06) | DRG 683 ==
LOC: N.ED 15:14 → N.EDINP 15:14 → SUATTDRO 17:22 → N.2E 21:55 → SUATTDRO 06-13 09:33
PROVIDERS: ADMIT Internal Medicine; ATTEND Internal Medicine